=== PATIENT | female | born 1985 | race Caucasian/White ===

== ENCOUNTER 2016-08-13 10:52 | Emergency (ER) | payer OTHER ==
[~2016-08-13] VITALS: Ht 149.9 cm; Wt 74.0 kg
[~2016-08-13 10:52] MED LIST: IBUP-1542 PO; NITR-58 PO
[2016-08-13 10:55] VITALS: Ht 149.9 cm; Wt 74.0 kg
[2016-08-13] MEDS ORDERED: ONDANSETRON (ODT) 4 MG TAB ODT STA (11:15)
[2016-08-13] MEDS ORDERED: ACETAMINOPHEN 325 MG TAB PO ONE (11:30)
[2016-08-13 11:51] LABS: ADD SCAN DIFF NO
[2016-08-13 11:53] LABS: BASOPHILS % 0.2 % (0.0-2.0); EOSINOPHILS # 0.1 10^3/ul (0.0-0.5); EOSINOPHILS % 0.7 % (0.0-7.0); HEMATOCRIT 41.7 % (37.0-47.0); HEMOGLOBIN 14.9 g/dl (12.0-16.0); LYMPHOCYTES % 13.6 % (15.0-51.0); MEAN CORPUSCULAR HEMOGLOBIN 31.5 pg (29.0-33.0); MEAN CORPUSCULAR HGB CONC 35.7 g/dl (32.0-37.0); MEAN CORPUSCULAR VOLUME 88.2 fl (82.0-101.0); MEAN PLATELET VOLUME 10.9 fl (7.4-10.4); MONOCYTE # 0.8 10^3/ul (0.3-0.9); MONOCYTES % 5.1 % (0.0-11.0); NEUTROPHIL # 11.6 10^3/ul (1.6-7.5); NEUTROPHILS % 79.9 % (39.0-77.0); PLATELET COUNT 216 10^3/UL (140-415); RED BLOOD COUNT 4.73 10^6/ul (4.20-5.40); RED CELL DISTRIBUTION WIDTH 11.5 % (11.5-14.5); WHITE BLOOD COUNT 14.6 10^3/ul (4.8-10.8)
[2016-08-13 11:58] LABS: ADD UMIC YES; URINE BILIRUBIN (Dip) NEGATIVE (NEGATIVE); URINE BLOOD (Dip) 2+ (NEGATIVE); URINE COLOR LT. YELLOW (YELLOW); URINE GLUCOSE (Dip) NEGATIVE (NEGATIVE); URINE KETONES (Dip) NEGATIVE (NEGATIVE); URINE LEUKOCYTE ESTERASE (Dip) NEGATIVE (NEGATIVE); URINE NITRITE (Dip) NEGATIVE (NEGATIVE); URINE TOTAL PROTEIN (Dip) NEGATIVE (NEGATIVE); URINE UROBILINOGEN (Dip) 0.2 E.U./dL (0.1-1.0)
[2016-08-13 12:13] LABS: ALBUMIN/GLOBULIN RATIO 1.66; BILIRUBIN,INDIRECT 0.7 mg/dl (0-1.1); BILIRUBIN,TOTAL 0.7 mg/dl (0.2-1.3); CALCIUM 9.3 mg/dl (8.4-10.2); CREATININE 0.68 mg/dl (0.44-1.00); POTASSIUM 4.1 mmol/L (3.5-5.1)
--- NOTE | 2016-08-13 12:28 | ERA ---
ER Documentation Chief Complaint Date/Time DATE: 08/13/16 TIME: 12:24 Chief Complaint EPIGASTRIC PAIN W/NAUSE AND DIARRHEA SINCE LAST NIGHT HPI 30-year-old female who is presenting with a chief complaint of epigastric pain 1 day. Patient denies any medical conditions, alleviating or aggravating factors, or similar symptoms in the past. Patient denies fever, vomiting, diarrhea, anorexia, weight loss, migrating pain, constipation, postprandial abdominal pain, new or recently changed medications, genital pain or ingestion of new or undercooked food. Denies any surgeries. ROS All systems reviewed and are negative except as per history of present illness. Medications Home Meds Active Scripts Ranitidine Hcl* (Zantac*) 150 Mg Tablet, 150 MG PO BID Y for EPIGASTRIC PAIN, # 30 TAB Prov:ABDI MENDOZA PA-C 08/13/16 Ibuprofen* (Motrin*) 600 Mg Tab, 600 MG PO Q6H Y for PAIN AND OR ELEVATED TEMP, #30 TAB Prov:YEE ORNELAS. [employer] 05/04/15 Nitrofurantoin Monohyd Macrocr* (Macrobid*) 100 Mg Capsr, 100 MG PO BID for 7 Days, CAP Prov:YEE ORNELAS. [employer] 05/04/15 Reported Medications [none] No Conflict Check 01/22/10 Allergies Allergies: Coded Allergies: No Known Allergy (Verified , 05/04/15) PMhx/Soc History of Surgery: Yes (C SECTION) Anesthesia Reaction: No Hx Neurological Disorder: No Hx Respiratory Disorders: No Hx Cardiac Disorders: No Hx Psychiatric Problems: No Hx Miscellaneous Medical Probl: No Hx Alcohol Use: No Hx Substance Use: No Hx Tobacco Use: No Smoking Status: Never smoker Physical Exam Vitals Vital Signs Date Time Temp Pulse Resp B/P Pulse Ox O2 Delivery O2 Flow Rate FiO2 08/13/16 10:55 98.3 87 20 139/83 98 Physical Exam Const: Obese 30-year-old female Head: Atraumatic Eyes: Normal Conjunctiva ENT: Normal External Ears, Nose and Mouth. Neck: Full range of motion..~ No meningismus. Resp: Clear to auscultation bilaterally Cardio: Regular rate and rhythm, no murmurs Abd: Mild epigastric tenderness. Soft, non tender, non distended. Normal bowel sounds. No McBurney's point tenderness. Negative psoas obturator and Rovsing signs. Negative Fritz's sign. Liver edge not palpable. Spleen not appreciated. Skin: No petechiae or rashes. No jaundice. Back: No midline or flank tenderness Ext: No cyanosis, or edema Neur: Awake and alert Psych: Normal Mood and Affect Result Diagram: 08/13/16 1130 08/13/16 1130 Results 24 hrs Laboratory Tests Test 08/13/16 11:30 White Blood Count 14.610^3/ul Red Blood Count 4.7310^6/ul Hemoglobin 14.9g/dl Hematocrit 41.7% Mean Corpuscular Volume 88.2fl Mean Corpuscular Hemoglobin 31.5pg Mean Corpuscular Hemoglobin Concent 35.7g/dl Red Cell Distribution Width 11.5% Platelet Count 94905^3/UL Mean Platelet Volume 10.9fl Neutrophils % 79.9% Lymphocytes % 13.6% Monocytes % 5.1% Eosinophils % 0.7% Basophils % 0.2% Nucleated Red Blood Cells % 0.0/100WBC Neutrophils # 11.610^3/ul Lymphocytes # 2.010^3/ul Monocytes # 0.810^3/ul Eosinophils # 0.110^3/ul Basophils # 0.010^3/ul Nucleated Red Blood Cells # 0.010^3/ul Urine Color LT. YELLOW Urine Clarity CLEAR Urine pH 5.5 Urine Specific [place] >=1.030 Urine Ketones NEGATIVE Urine Nitrite NEGATIVE Urine Bilirubin NEGATIVE Urine Urobilinogen 0.2 E.U./dL Urine Leukocyte Esterase NEGATIVE Urine Microscopic RBC 0-2/HPF Urine Microscopic WBC 0-2/HPF Urine Epithelial Cells MODERATE Urine Bacteria MODERATE Urine Hemoglobin 2+ Urine Glucose NEGATIVE% Urine Total Protein NEGATIVE Sodium Level 141mmol/L Potassium Level 4.1mmol/L Chloride Level 106mmol/L Carbon Dioxide Level 25mmol/L Anion Gap 14 Blood Urea Nitrogen 12mg/dl Creatinine 0.68mg/dl Glucose Level 95mg/dl Calcium Level 9.3mg/dl Total Bilirubin 0.7mg/dl Direct Bilirubin 0.00mg/dl Indirect Bilirubin 0.7mg/dl Aspartate Amino Transf (AST/SGOT) 25IU/L Alanine Aminotransferase (ALT/SGPT) 40IU/L Alkaline Phosphatase 62IU/L Total Protein 8.0g/dl Albumin 5.0g/dl Globulin 3.00g/dl Albumin/Globulin Ratio 1.66 Lipase 37U/L Current Medications Medications (Trade) Dose Ordered Sig/Sea Route PRN Reason Start Time Stop Time Status Last Admin Dose Admin Ondansetron HCl (Zofran Odt) 4 mg ONCE STAT ODT 08/13/16 11:15 08/13/16 11:17 DC 08/13/16 11:41 Acetaminophen (Tylenol Tab) 650 mg ONCE ONCE PO 08/13/16 11:30 08/13/16 11:31 DC 08/13/16 11:41 Procedures/MDM Patient was evaluated and worked up for epigastric abdominal discomfort. Patient was given Zofran acetaminophen in the ED with improvement in symptoms. The workup included labs and urine. The current most likely diagnosis is gastritis. The treatment plan will thus include Zantac for symptomatic relief as well as supportive therapy which the patient has been educated on. Patient is also been advised to follow-up with PCP for evaluation as I cannot rule out chronic disorder such as H. pylori, dysmotility, etc. I have spoken with the patient about the necessity of returning if fever develops, location of pain changes or symptoms worsen/ persist. At this time I do not suspect acute pancreatitis, cholangitis, myocardial/ Intestinal ischemia, pneumonia, hernia, or esophageal rupture. I have spoken with my attending Dr. Rodriguez who agrees with the assessment and plan. On repeat exam, the abdomen has improved. The patient is well appearing, and tolerates PO. I have spoke with the patient regarding their condition and future management. They have verbally responded that they understand their status and treatment plan. The patients vitals are stable, and their current condition is appropriate for discharge. The patient will be given discharge instructions with return precautions. Departure Diagnosis: Primary Impression: Epigastric pain Condition: Stable Additional Instructions: Follow up with your PCP within the next 1-3 days for a more thorough evaluation and a possible referral to a specialist. Return the the emergency department immediately if symptoms worsen or change. If you have any questions regarding medications, ask your pharmacist or us before you leave. If any adverse reactions occur while taking your medications, discontinue the treatment and return to the emergency department immediately. Take your medications as directed, and complete the entire course of treatment. ABDI MENDOZA PA-C Aug 13, 2016 12:28
[2016-08-13 12:33] LABS: BACTERIA,URINE MODERATE; URINE RBCS 0-2 /HPF (0)
[2016-08-13] MEDS ORDERED: RANI150T9 PO (13:32)
[2016-08-13 13:48] VITALS: BP 117/62; PULSE 82; RESP 18
== END 2016-08-13 13:48 | disposition home or self-care (01) ==
LOC: FTE 10:52
DX: R10.13 Epigastric pain (principal)
CPT/HCPCS: 80053; 81001; 83690; 85025; Z7502; Z7610; 99283